=== PATIENT | male | born 1950 | race Caucasian/White ===

== ENCOUNTER → 2019-01-20 | Outpatient (CLI) | payer OTHER ==
[~2019-01-20] MED LIST: ACYCLOVIR 400400 M1 PO; ADULT LOW DOSE81 MG PO; CEFAZOLIN-2 GM/1002 IV; COLACE100 MG PO; FISH OIL 1,0001 EAC5; HYDROCODON-ACE1 EAC7 PO; LISINOPRIL20 MG PO; NAPROSYN500 MG PO; PRILOSEC 20 MG20 MG PO; SIMVASTATIN40 MG PO; VALIUM5 MG PO; VITAMIN D400 UNI1 PO
== END ==
LOC: CAT 09:18
DX: Z13.6 Encounter for screening for cardiovascular disorders (principal); Z82.49 Family history of ischemic heart disease and other diseases of the circulatory system